=== PATIENT | female | born 1955 | race Caucasian/White ===

== ENCOUNTER → 2022-11-03 | Outpatient (CLI) | payer MEDICARE, OTHER ==
[~2022-11-03] MED LIST: LIDOCAINE 1% 10 ML MULTIDOSE VIAL IJ ONE
== END ==
LOC: EDSEX 09:33 → US 09:33
PROVIDERS: ATTEND Internal Medicine
DX: E04.2 Nontoxic multinodular goiter (principal)
CPT/HCPCS: 10005; 10006; 88172; 88173; 88300; 88305